=== PATIENT | female | born 1950 | race Caucasian/White ===

== ENCOUNTER → 2017-11-27 | Outpatient (CLI) | payer MEDICARE ==
[~2017-11-27] MED LIST: CAR350 PO; MAGN250T25 PO; METO-222 PO; OMEP40CA45 PO; OXYGEN INH; POTT20 PO; SERT-173 PO; SIMV-42 PO; SPIR25TA78 PO; VITA-324 PO
--- NOTE | 2017-11-28 08:29 | RADIOLOGY IMAGING REPORT ---
FACILITY: [facility] PATIENT NAME: MONTY SNELL : [id number] MR: [id number] V: [id number] EXAM DATE: ORDERING PHYSICIAN: ANIRUDH GREER TECHNOLOGIST: Loly Darby PROCEDURE:BILATERAL DIGITAL SCREENING MAMMOGRAM WITH CAD ASSISTED INTERPRETATION AND 3D BREAST TOMOSYNTHESIS. COMPARISON:Prior mammograms dated , 02/19/14 and 07/28/11. INDICATIONS:SCREENING FINDINGS: A small amount of fibroglandular tissue is seen throughout the breasts. The parenchymal pattern has remained stable when allowing for difference in mammographic technique and patient positioning. There is no evidence of malignant appearing mass, malignant appearing calcification or other secondary sign of malignancy in either breast. DIAGNOSTIC CATEGORY 1--NEGATIVE. RECOMMENDATIONS: ROUTINE MAMMOGRAM AND CLINICAL EVALUATION. IMPRESSION: Bi-RADS 1: No significant abnormality is seen. Images were reviewed with R2CAD and 3D breast tomosynthesis. Dictated by: Cass Webb M.D. on 11/27/2017 at 16:54 Transcribed by: ALONZO on 11/27/2017 at 18:25 Approved by: Cass Webb M.D. on 11/28/2017 at 8:29 [facility]
== END ==
LOC: MAMO 01:45
PROVIDERS: ATTEND Physician Assistant Medical
DX: Z12.31 Encounter for screening mammogram for malignant neoplasm of breast (principal)
CPT/HCPCS: 77063; 77067

== ENCOUNTER 2018-03-05 01:28 | Day surgery (SDC) | payer MEDICARE ==
[2018-03-05] VITALS (7 sets, daily range): BP systolic 107–126; BP diastolic 71–80
[~2018-03-05] VITALS: Ht 154.9 cm; Wt 83.9 kg
[~2018-03-05 01:28] MED LIST changes: +ALEN70TA43 PO; +ASPI81TA94 PO; +CYCL1DRO6 OP; +DESV50TA9 PO; +FERR325T24 PO; +HYDR-2966 PO; +LEVO25TA57 PO; +LOSA50TA72 PO; +MIRT-22 PO; +PANT40TA65 PO
[2018-03-05] MEDS ORDERED: LIDOCAINE/SOD BICARB 8.4% SYR ID ONE (08:45)
[2018-03-05] MEDS ORDERED: ceFAZolin(*) 2GM/D5W 50ML 50 ML IVPB ONE (08:45)
[2018-03-05] MEDS ORDERED: NORMOSOL R SOLN(*) 1000 ML BAG 1,000 ML IV PRN (08:45)
[2018-03-05] MEDS ORDERED: MIDAZOLAM 2 MG/2 ML VIAL IVP PRN (08:45)
[2018-03-05] MEDS ORDERED: CELECOXIB 200 MG CAP PO ONE (09:10)
[2018-03-05] MEDS ORDERED: DEXAMETHASONE SOD PHOS 10MG/ML ONE (10:14)
[2018-03-05] MEDS ORDERED: ONDANSETRON 4 MG/2 ML VIAL ONE (10:14)
[2018-03-05] MEDS ORDERED: LIDOCAINE MPF 1% 5 ML VIAL ONE (10:14)
[2018-03-05] MEDS ORDERED: PROPOFOL EMUL(*) 10MG/ML 20 ML 20 ML ONE (10:14)
[2018-03-05] MEDS ORDERED: fentaNYL CITR 100 MCG/2 ML AMP ONE ×3 (10:14→14:24)
[2018-03-05] MEDS ORDERED: MIDAZOLAM 2 MG/2 ML VIAL ONE (10:15)
[2018-03-05] MEDS ORDERED: ROPIVACAINE 0.2% 20 ML VIAL ONE (11:20)
[2018-03-05] MEDS ORDERED: GLYCOPYRROLATE 0.2 MG/ML SDV ONE (12:06)
[2018-03-05] MEDS ORDERED: KETOROLAC 30 MG/ML VIAL ONE (12:30)
[2018-03-05] MEDS ORDERED: DEXMEDETOMIDINE HCL 200 MCG/2 ML IV ONE (12:30)
[2018-03-05] MEDS ORDERED: ACETAMINOPHEN(*)1000 MG/100 ML 100 ML IVPB ONE (13:02)
[2018-03-05] MEDS ORDERED: NS(*) 0.9% 100 ML BAG 100 ML ONE (13:04)
[2018-03-05] MEDS ORDERED: OXYC-865 PO (15:39)
--- NOTE | 2018-03-05 21:55 | OPERATIVE REPORT 1 ---
EVENT DATE: March 05, 2018 SURGEON: Pipe Cuadra MD ANESTHESIOLOGIST: Mina Lacy MD ANESTHESIA: General LMA anesthesia. INFORMATION ASSURANCE OFFICER: HARSHA Borges PREOPERATIVE DIAGNOSES 1. Left shoulder rotator cuff tear. 2. Labral fraying. 3. Bicipital irritation. 4. Cartilage damage. POSTOPERATIVE DIAGNOSES 1. Left shoulder rotator cuff tear. 2. Labral fraying. 3. Bicipital irritation. 4. Cartilage damage. PROCEDURES PERFORMED 1. Left shoulder labral debridement. 2. Biceps tenotomy. 3. Rotator cuff repair. 4. Chondroplasty and extensive debridement. 5. Subacromial decompression. FINDINGS The patient had a torn rotator cuff and significant amount of fraying and cartilage damage throughout the joint. ESTIMATED BLOOD LOSS Minimal. DRAINS None. COMPLICATIONS None. IMPLANTS USED Biomet 2.9 Juggernaut anchor which was double loaded. SPECIMENS None. TOURNIQUET TIME Not applicable. INDICATIONS AND HISTORY This patient is a 67-year-old female who presented to my clinic for evaluation of left shoulder pain and irritation going on for some time. She continued to have pain and irritation despite conservative management, and so an MRI revealed that she did have a large partial-thickness rotator cuff tear as well as some bicipital fraying and irritation and cartilage damage throughout the joint, so I talked to her about the implications of this, and she wanted to go ahead with surgery today, March 05, 2018. The risks and benefits were discussed with the patient, and informed consent was obtained at the last clinic visit. She understood there was no guarantee it would make her better. She may continue to have problems and issues associated with the shoulder custodial, and then she also may get a Pradip deformity associated with the biceps. DESCRIPTION OF PROCEDURE As the patient was brought into the operating room, she and the procedure were both verified. She was placed supine on the operating table and induced and intubated by Anesthesia. She was then turned in the lateral decubitus position with the left arm towards the ceiling, and the left arm was prepped and draped and hung in traction in the usual fashion. A timeout was observed verifying the correct patient and procedure. The standard incisions were made on the anterior and posterior aspects of the shoulder. I inserted the scope posteriorly in through the skin and subcutaneous tissue and into the intra-articular portion of the joint. Once I was into the intra-articular portion of the joint, there was noted to be a significant amount of cartilage damage and fraying and irritation associated with the labrum and bicipital complex and also some chondrocalcinosis throughout this area. I then utilized the suction shaver to clean up a lot of this and also electrocautery in order to cut the biceps tendon and debride the labrum. Once I did this, there were no further signs of chondrocalcinosis throughout, but I did have to debride a lot of cartilage over the glenohumeral joint up in the area of the rotator cuff. I then identified the rotator cuff tear in the leading edge of the supraspinatus and a little bit toward the subscapularis, and then I was able to debride the undersurface of this, decorticate it a little bit, and then tag it for later repair. Once in the subacromial space, I did a complete bursectomy up into this area and also performed a subacromial decompression by taking off the anterior spur off the acromion. This was then followed by removing the rest of the bursal sac over the top part of the shoulder, then identifying where the tear was, and then taking down a small portion of the leftover fibers of the rotator cuff as they were not likely to heal. Once I did this, I was then able to get underneath the rotator cuff and then debride and decorticate the footprint. I then established a lateral portal and was able to put a 2.9 Juggernaut anchor which was double loaded into the footprint in this area. Once I did this, I was then able to pass the sutures in a horizontal mattress-type fashion across the entirety of the rotator cuff tear and then pull it back to a more natural position and where it laid flat against the footprint. This was then followed by tying these and then cutting them without any difficulty. There was no need for a lateral row secondarily due to the fact that we had good coverage associated with the lateral aspect of the anchor. I then was able to rotate the arm, internally and externally rotate it as well as abduct it and adduct it , and there were no signs of problems or gapping or undue tension on the rotator cuff itself, and so therefore I debrided a little bit more on the cuff and then removed all instrumentation, drained the fluid out of the shoulder, closed the portal sites with a 4-0 Monocryl in an interrupted subcuticular fashion. This was then followed by anesthetization with ropivacaine, then dressing with Steri-Strips, gauze 4 x 4's, and a soft dressing. Then, the patient was awakened, extubated, and transferred to PACU in stable condition. She will be put in an abduction sling and be discharged home as an outpatient. JONH
== END 2018-03-05 14:30 | disposition home or self-care (01) ==
LOC: OR 01:28
PROVIDERS: ATTEND Orthopaedic Surgery
DX: M75.102 Unspecified rotator cuff tear or rupture of left shoulder, not specified as traumatic (principal)
CPT/HCPCS: 29826; 29827; A4565; A9270; C1713; J0131; J1100; J1885; J2001; J2250; J2405; J2704; J2795; J3010; J3490; J7050; J0690

== ENCOUNTER → 2019-07-10 | Outpatient (CLI) | payer MEDICARE ==
[~2019-07-10] MED LIST changes: -LOSA50TA72 PO; +LOSA50TA80 PO; +OXYC-865 PO
--- NOTE | 2019-07-10 15:31 | RADIOLOGY IMAGING REPORT ---
FACILITY: [facility] [place] PATIENT NAME: MONTY SNELL : [id number] MR: [id number] V: [id number] EXAM DATE: [id number] ORDERING PHYSICIAN: CAMRON GUERRA TECHNOLOGIST: Loly Darby PROCEDURE: BILATERAL DIGITAL SCREENING MAMMOGRAM WITH CAD ASSISTED INTERPRETATION & 3D TOMOSYNTHESIS REASON FOR STUDY: Screening. COMPARISON: 11/27/17, 05/30/16, 02/19/14. VIEWS OBTAINED: Bilateral 2D & 3D full field CC & MLO projections. BREAST DENSITY: The breast parenchyma is mostly fatty replaced. MAMMOGRAM FINDINGS: There are no mammographic findings concerning for malignancy. No significant interval change. IMPRESSION: BIRADS 1: Negative. DIAGNOSTIC CATEGORY 1--NEGATIVE. RECOMMENDATIONS: ROUTINE MAMMOGRAM IN 1YR AND CLINICAL EVALUATION. Dictated by: Neeraj Joel on 07/10/2019 at 14:57 Transcribed by: IVETT on 07/10/2019 at 15:09 Approved by: Neeraj Joel on 07/10/2019 at 15:25 [facility]
== END ==
LOC: MAMO 04:00
PROVIDERS: ATTEND Nurse Practitioner Family
DX: Z12.31 Encounter for screening mammogram for malignant neoplasm of breast (principal)
CPT/HCPCS: 77063; 77067